=== PATIENT | female | born 1975 | race Asian ===

== ENCOUNTER 2018-03-25 08:03 | Outpatient (CLI) | payer OTHER ==
--- NOTE | 2018-03-25 09:36 | RAD ---
3 VIEWS LUMBAR SPINE: Date: 03/25/18 INDICATION: History of radiculopathy. IMPRESSION: No abnormal translational motion demonstrated. Superior end plate wedge compression abnormality of L2 is unchanged from the comparison dated 08/31/14. POS: BASHIR
--- NOTE | 2018-03-25 11:34 | MRI ---
MRI CERVICAL SPINE WITHOUT CONTRAST: HISTORY: Cervical radiculopathy. COMPARISON: None. FINDINGS: Appropriate T1 marrow signal intensity of the cervical vertebrae. Cervical spine vertebral body heig ht is maintained. No evidence of fracture. No significant STIR hyperintensity to suggest vertebral body edema or ligamentous injury. The visualized brain parenchyma, cervicomedullary junction, cervical cord, and upper thoracic cord nuno ve normal size and signal intensity. C2-C3: No significant central canal stenosis or neural foraminal narrowing. C3-C4: No significant central canal stenosis or neural foraminal narrowing. C4-C5: No significant central canal stenosis. Minimal right foraminal narrowing due to degenerative change of the uncovertebral joint. The left neural foramen is patent. C5-C6: There is a broad-based disk bulge without significant central canal stenosis. The neural for nik are patent. C6-C7: No significant central canal stenosis or neural foraminal narrowing. C7-T1: No significant central canal stenosis or neural foraminal narrowing. IMPRESSION: No significant central canal stenosis or foraminal narrowing. POS: BASHIR
== END 2018-03-25 08:04 | disposition home or self-care (01) ==
LOC: SCSMRI 08:03
PROVIDERS: ATTEND Neurological Surgery
DX: M54.12 Radiculopathy, cervical region (principal); M48.56XA Collapsed vertebra, not elsewhere classified, lumbar region, initial encounter for fracture
CPT/HCPCS: 72100; 72141

== ENCOUNTER 2019-09-10 14:02 | Outpatient (CLI) | payer OTHER ==
--- NOTE | 2019-09-10 14:59 | ULT ---
EXAM: Transabdominal pelvic ultrasound with Doppler PROVIDED CLINICAL HISTORY: Pelvic pain COMPARISON: None FINDINGS: The uterus measures approximately 8.7 x 4.9 x 6.7 cm and demonstrates a focal area of diminished echo genicity measuring approximately 1.2 cm involving the posterior uterine body likely a fibroid. Uterine endometrial thickness is 4 mm. Right ovary measures approximately 2.9 x 1.7 x 2.5 cm and demonstrates a normal sonographic appearanc e. Left ovary measures approximately 2.9 x 2.5 x 3.6 cm and demonstrates a normal sonographic appearance . Grayscale and color Doppler sonography with spectral analysis of the ovarian waveforms demonstrates n ormal flow bilaterally. There is no evidence for free pelvic fluid. IMPRESSION: No evidence for an acute process.
== END 2019-09-10 14:03 | disposition home or self-care (01) ==
LOC: SCSULT 14:02
PROVIDERS: ATTEND Student in an Organized Health Care Education/Training Program
DX: R10.84 Generalized abdominal pain (principal); Z87.42 Personal history of other diseases of the female genital tract
CPT/HCPCS: 76856; 93976